=== PATIENT | female | born 1965 | race Caucasian/White ===

== ENCOUNTER 2021-10-20 20:00 | Emergency (ER) | payer OTHER ==
[~2021-10-20] VITALS: Ht 157.5 cm; Wt 94.4 kg
[2021-10-20 20:11] VITALS: BP 153/86
--- NOTE | 2021-10-20 20:16 | NUR ---
PT SENT TO [facility].
--- NOTE | 2021-10-20 20:55 | NUR ---
TAKE TO CT
--- NOTE | 2021-10-20 21:59 | NUR ---
PT TAKEN TO CT.
[2021-10-20] MEDS ORDERED: MORPHINE SULFATE 4 MG/ML SYR IM ONE (22:55)
[2021-10-20] MEDS ORDERED: KETOROLAC 60 MG/2 ML VIAL IM ONE ×2 (23:04→23:05)
[2021-10-20] MEDS ORDERED: IBUP-2213 PO (23:17)
[2021-10-20 23:38] VITALS: BP 155/81
== END 2021-10-20 23:38 | disposition home or self-care (01) ==
LOC: MED 20:00
DX: S09.90XA Unspecified injury of head, initial encounter (principal); M54.6 Pain in thoracic spine; M25.512 Pain in left shoulder; R55 Syncope and collapse; I10 Essential (primary) hypertension; W19.XXXA Unspecified fall, initial encounter; Y93.89 Activity, other specified; Y92.89 Other specified places as the place of occurrence of the external cause; Y99.8 Other external cause status
CPT/HCPCS: 70450; 72125; 96372; 99284; J1885; J2270